=== PATIENT | female | born 1955 | race Caucasian/White ===

== ENCOUNTER → 2016-07-17 | Outpatient (CLI) | payer OTHER ==
[~2016-07-17] VITALS: Ht 157.5 cm; Wt 136.0 kg
[~2016-07-17] MED LIST: ACTOS15 MG PO; ARTHROTEC 751 TABLET PO; ASPIR-LOW81 MG PO; COUMADIN,JANTOVE1 MG PO; COUMADIN,JANTOVE5 MG PO; COUMADIN2 MG PO; COUMADIN4 MG PO; COUMADIN5 MG PO; COUMADIN6 MG PO; CYMBALTA30 MG PO; CYMBALTA60 MG PO; DICLOFENAC-MIS1 EAC3 PO; ELIQUIS5 MG PO; FLEXERIL10 MG PO; FOLIC ACID1 MG PO; HYDROCHLOROTHIA25 MG PO; IRON325 M1 PO; JANUVIA25 M1 PO; KEFLEX500 MG PO; LANTUS 10100 UNITS/ SC; LANTUS 10100 UNITS/ SQ; LEVEMIR FL100 UNIT/1 SC; LEVEMIR100 UNIT/2 SC; LIPITOR40 MG PO; LISINOPRIL5 MG PO; LO-DOSE ASPIRIN81 M2 PO; MELATONIN10 M2 PO; MORPHINE SULFAT15 M1 PO; NORCO 10/3251 TABLET PO; NOVOLOG 10100 UNITS/ SC; NOVOLOG PE100 UNITS/ SC; OXYCODONE; PERCOCET 7.51 TABLET PO; PREDNISONE; PROTONIX40 MG PO; PROVENTIL HFA6.7 GM IH; PROVENTIL17 GM IH; RESTASIS MULTI5.5 ML BOTH EYES; SALINE NASAL SP45 ML BOTH NARES; SAVELLA; TORADOL10 MG PO; TRAMADOL HCL50 MG PO; TYLENOL REGULA325 MG PO; VALTREX50 MG/ML PO; VERAPAMIL HCL120 MG PO; VERAPAMIL HCL180 M2 PO; VERAPAMIL HCL240 MG PO; VITAMIN B-122500 MCG SL; VITAMIN D-32000 UNI2 PO; VITAMIN D2000 UNIT PO; VOLTAREN75 MG PO; WARFARIN SODIUM5 MG PO; ZANAFLEX2 M1 PO; ZESTRIL,PRINIV2.5 MG PO
[2016-07-17 11:22] LABS: POINT-OF-CARE METER ID UU13113694
== END | disposition home or self-care (01) ==
LOC: AMB 10:32
PROVIDERS: Internal Medicine Gastroenterology
DX: Z12.11 Encounter for screening for malignant neoplasm of colon (principal); K57.30 Diverticulosis of large intestine without perforation or abscess without bleeding; K64.8 Other hemorrhoids; K55.20 Angiodysplasia of colon without hemorrhage; D50.9 Iron deficiency anemia, unspecified; K29.60 Other gastritis without bleeding; K44.9 Diaphragmatic hernia without obstruction or gangrene; K31.7 Polyp of stomach and duodenum; R94.31 Abnormal electrocardiogram [ECG] [EKG]; I10 Essential (primary) hypertension; E78.5 Hyperlipidemia, unspecified; E11.9 Type 2 diabetes mellitus without complications; K21.9 Gastro-esophageal reflux disease without esophagitis; J45.909 Unspecified asthma, uncomplicated; Z86.718 Personal history of other venous thrombosis and embolism; Z79.01 Long term (current) use of anticoagulants; Z79.4 Long term (current) use of insulin; Z79.84 Long term (current) use of oral hypoglycemic drugs; Z79.82 Long term (current) use of aspirin
CPT/HCPCS: 82948; 93005; J2405

== ENCOUNTER 2016-09-05 13:30 | Day surgery (SDC) | payer OTHER ==
[~2016-09-05] VITALS: Ht 157.5 cm; Wt 136.0 kg
[~2016-09-05 13:30] MED LIST changes: +METFORMIN HCL500 MG PO
[2016-09-05 14:06] LABS: POINT-OF-CARE METER ID UU14174212
== END 2016-09-05 15:50 | disposition home or self-care (01) ==
LOC: PAIN 13:30 → SDC 14:15 → PAIN 14:15
PROVIDERS: Anesthesiology Pain Medicine
DX: M47.816 Spondylosis without myelopathy or radiculopathy, lumbar region (principal); M54.5 Low back pain; G89.29 Other chronic pain; I10 Essential (primary) hypertension; J45.909 Unspecified asthma, uncomplicated; K21.9 Gastro-esophageal reflux disease without esophagitis; R00.0 Tachycardia, unspecified; M51.36 Other intervertebral disc degeneration, lumbar region; M79.7 Fibromyalgia; E11.9 Type 2 diabetes mellitus without complications; E78.5 Hyperlipidemia, unspecified; E66.01 Morbid (severe) obesity due to excess calories; Z68.43 Body mass index [BMI] 50.0-59.9, adult; Z86.718 Personal history of other venous thrombosis and embolism; Z79.82 Long term (current) use of aspirin; Z86.73 Personal history of transient ischemic attack (TIA), and cerebral infarction without residual deficits; Z79.01 Long term (current) use of anticoagulants; Z79.4 Long term (current) use of insulin; Z79.84 Long term (current) use of oral hypoglycemic drugs
CPT/HCPCS: 82948; J1030; J2250; J3010; S0020

== ENCOUNTER 2016-09-09 14:48 | Emergency (ER) | payer OTHER ==
[~2016-09-09] VITALS: Ht 157.5 cm; Wt 133.5 kg
[2016-09-09 19:34] VITALS: BP 210/113
== END 2016-09-09 19:34 | disposition home or self-care (01) ==
LOC: EME 14:48
PROC: 3E023BZ Introduction of Anesthetic Agent into Muscle, Percutaneous Approach (ICD-10-PCS; principal; 2016-09-09)
DX: M54.6 Pain in thoracic spine (principal); J45.909 Unspecified asthma, uncomplicated; E11.9 Type 2 diabetes mellitus without complications; Z79.4 Long term (current) use of insulin; I10 Essential (primary) hypertension; M17.0 Bilateral primary osteoarthritis of knee; F32.9 Major depressive disorder, single episode, unspecified; Z90.49 Acquired absence of other specified parts of digestive tract; Z87.442 Personal history of urinary calculi; Z86.718 Personal history of other venous thrombosis and embolism; Z79.01 Long term (current) use of anticoagulants; Z79.82 Long term (current) use of aspirin
CPT/HCPCS: 71020; 99281; 99285